=== PATIENT | female | born 1995 | race Caucasian/White ===

== ENCOUNTER 2019-11-05 14:34 | Emergency (ER) | payer BC ==
[2019-11-05] MEDS ORDERED: Adacel (T-DAP) 0.5 ML SYRINGE ONE (14:49)
[2019-11-05] MEDS ORDERED: Bacitracin 1 PK ONE (15:10)
--- NOTE | 2019-11-05 15:57 | RAD ---
Exam: XR Forearm Rt 2 View STANDARD HISTORY: Dogbite. Puncture wound. COMPARISON: None FINDINGS: There is subcutaneous soft tissue swelling as well as subcutaneous emphysema seen at the lateral aspe ct of the mid right forearm suggesting laceration/puncture wounds. No radiopaque foreign body is identified. No acute fracture, dislocation, or other acute osseous abnormality is identified. IMPRESSION: 1. No acute osseous abnormality. 2. No radiopaque foreign body. 3. Subcutaneous emphysema and soft tissue swelling related to patient's recent injury and laceration/ puncture wound.
--- NOTE | 2019-11-05 15:57 | RAD ---
Exam: XR Hand Rt 3 View STANDARD HISTORY: . Puncture wounds to right forearm. COMPARISON: None FINDINGS: No radiopaque foreign body is identified. No acute fracture, dislocation, or other acute osseous abnormality is identified. IMPRESSION: No acute osseous abnormality is identified.
--- NOTE | 2019-11-05 15:59 | RAD ---
Exam: XR Foot Lt 3 View STANDARD HISTORY: Dogbite. Puncture wounds to left ankle/foot and right forearm. COMPARISON: None FINDINGS: No radiopaque foreign body is identified. Subcutaneous soft tissue swelling as well as subcutaneous e mphysema is seen at the anterior aspect of the left ankle and dorsal to the midfoot. No acute fracture, dislocation, or other acute osseous abnormality is identified. IMPRESSION: 1. No radiopaque foreign body or acute osseous abnormality visualized. 2. Subcutaneous soft tissue swelling and subcutaneous emphysema anterior to the left ankle and dorsal to the midfoot related to laceration/puncture wound.
== END 2019-11-05 16:09 | disposition home or self-care (01) ==
LOC: NAV ERS 14:34
DX: S91.352A Open bite, left foot, initial encounter (principal); S51.851A Open bite of right forearm, initial encounter; S61.451A Open bite of right hand, initial encounter; F41.9 Anxiety disorder, unspecified; F32.9 Major depressive disorder, single episode, unspecified; F90.9 Attention-deficit hyperactivity disorder, unspecified type; Z23 Encounter for immunization; W54.0XXA Bitten by dog, initial encounter
CPT/HCPCS: 90471; 90715